=== PATIENT | female | born 1955 | race Caucasian/White ===

== ENCOUNTER 2017-07-17 15:17 | Emergency (ER) | payer OTHER ==
[~2017-07-17] VITALS: Ht 154.9 cm; Wt 49.0 kg
[~2017-07-17 15:17] MED LIST: LEVO88TA2 PO; VITA2000 PO; WELLTAB39 PO
[2017-07-17 15:19] VITALS: BP 130/83; PULSE 95; RESP 16; TEMP 98.4; O2SAT 96
[2017-07-17] MEDS ORDERED: IBUP1TAB7 PO (16:34)
[2017-07-17] MEDS ORDERED: CYCL10TA PO (16:34)
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
== END 2017-07-17 16:42 | disposition home or self-care (01) ==
LOC: PHEFT 15:17
DX: S29.012A Strain of muscle and tendon of back wall of thorax, initial encounter (principal); F41.8 Other specified anxiety disorders; Z72.0 Tobacco use; V49.59XA Passenger injured in collision with other motor vehicles in traffic accident, initial encounter; Y92.410 Unspecified street and highway as the place of occurrence of the external cause
CPT/HCPCS: 99283